=== PATIENT | female | born 1985 | race Caucasian/White ===

== ENCOUNTER 2018-05-30 20:51 | Emergency (ER) | payer OTHER ==
[~2018-05-30] VITALS: Ht 154.9 cm; Wt 136.2 kg
[~2018-05-30 20:51] MED LIST: AMLO10TA8 PO; CARV3.122 PO; VALS40TA10 PO
[2018-05-30 23:07] VITALS: BP 139/79
[2018-05-30 23:31] LABS: HCG UR SG 1.034 (1.003-1.030); MICROSCOPIC NOT IND
[2018-05-30 23:33] LABS: CULTURE INDICATED? NO
[2018-05-31 00:38] LABS: BASOPHILS # (AUTO) 0.04 x10^3/uL (0-0.1); BASOPHILS % (AUTO) 0 % (0-1); EOSINOPHILS # (AUTO) 0.18 x10^3/uL (0-0.4); EOSINOPHILS % (AUTO) 2 % (1-7); LYMPHOCYTES # (AUTO) 3.35 x10^3/uL (1-3.4); LYMPHOCYTES % (AUTO) 29 % (22-44); MD NO; MEAN CORPUSCULAR HEMOGLOBIN 29.4 pg (27.0-34.8); MEAN CORPUSCULAR HGB CONC 33.8 g/dL (32.4-35.8); MEAN PLATELET VOLUME 8.1 fL (7.4-10.4); MONOCYTES % (AUTO) 7 % (2-9); NEUTROPHILS # (AUTO) 7.26 x10^3/uL (1.8-6.8); NEUTROPHILS % (AUTO) 63 % (42-75); PLATELET COUNT 396 x10^3/uL (130-400); RED BLOOD COUNT 4.82 x10^6/uL (3.82-5.3); RED CELL DISTRIBUTION WIDTH 13.4 % (9.6-15.2)
[2018-05-31 00:51] LABS: ALBUMIN 3.5 g/dL (3.4-5.0); ANION GAP 5 mmol/L (5-15); CALCIUM 8.5 mg/dL (8.5-10.1); CHLORIDE 108 mmol/L (98-107)
[2018-05-31 00:58] LABS: ALANINE AMINOTRANSFERASE 30 U/L (12-78); ALKALINE PHOSPHATASE 63 U/L (45-117); BILIRUBIN,TOTAL 0.4 mg/dL (0.2-1.0); CREATININE 1.01 mg/dL (0.55-1.02); TOTAL PROTEIN 7.3 g/dL (6.4-8.2); TROPONIN I < 0.015 ng/mL (0.000-0.045)
== END 2018-05-31 02:34 | disposition home or self-care (01) ==
LOC: ED 05-31 02:20
DX: R07.89 Other chest pain (principal); I10 Essential (primary) hypertension
CPT/HCPCS: 36415; 71046; 80053; 81003; 81025; 84484; 84703; 85025; 93005; 99284

== ENCOUNTER 2019-04-29 19:07 | Emergency (ER) | payer OTHER ==
[~2019-04-29] VITALS: Ht 154.9 cm; Wt 128.8 kg
[2019-04-29 20:45] LABS: BASOPHILS # (AUTO) 0.05 x10^3/uL (0-0.1); BASOPHILS % (AUTO) 1 % (0-1); EOSINOPHILS # (AUTO) 0.18 x10^3/uL (0-0.4); EOSINOPHILS % (AUTO) 2 % (1-7); LYMPHOCYTES # (AUTO) 3.52 x10^3/uL (1-3.4); LYMPHOCYTES % (AUTO) 33 % (22-44); MD NO; MEAN CORPUSCULAR HEMOGLOBIN 28.4 pg (27.0-34.8); MEAN CORPUSCULAR HGB CONC 33.2 g/dL (32.4-35.8); MEAN CORPUSCULAR VOLUME 85.4 fL (80-100); MEAN PLATELET VOLUME 8.7 fL (7.4-10.4); MONOCYTES # (AUTO) 0.63 x10^3/uL (0.2-0.8); MONOCYTES % (AUTO) 6 % (2-9); NEUTROPHILS # (AUTO) 6.23 x10^3/uL (1.8-6.8); NEUTROPHILS % (AUTO) 59 % (42-75); PLATELET COUNT 436 x10^3/uL (130-400); RED BLOOD COUNT 4.86 x10^6/uL (3.82-5.3); RED CELL DISTRIBUTION WIDTH 14.3 % (9.6-15.2)
[2019-04-29 20:53] LABS: ALBUMIN 3.6 g/dL (3.4-5.0); ANION GAP 8 mmol/L (5-15); CALCIUM 9.7 mg/dL (8.5-10.1); CHLORIDE 100 mmol/L (98-107); CREATININE 1.03 mg/dL (0.55-1.02)
[2019-04-29 20:58] LABS: TROPONIN I < 0.015 ng/mL (0.000-0.045)
[2019-04-29] MEDS ORDERED: KETOROLAC 30 MG/1 ML IM ONE (22:30)
[2019-04-29] MEDS ORDERED: KETOROLAC 30 MG/1 ML ONE (22:58)
[2019-04-29] MEDS ORDERED: BUPR100T8 PO (23:10)
[2019-04-29 23:20] VITALS: BP 149/72
== END 2019-04-29 23:23 | disposition home or self-care (01) ==
LOC: ED 23:00
DX: R07.89 Other chest pain (principal); I10 Essential (primary) hypertension
CPT/HCPCS: 36415; 71046; 80048; 82040; 84484; 85025; 93005; 96372; 99285; J1885

== ENCOUNTER 2020-04-15 19:29 | Emergency (ER) | payer OTHER ==
[~2020-04-15] VITALS: Ht 154.9 cm; Wt 127.0 kg
[~2020-04-15 19:29] MED LIST changes: +AMLO-211 PO; -AMLO10TA8 PO; +BUPR100T8 PO
[2020-04-15 19:31] VITALS: BP 173/82
[2020-04-15] MEDS ORDERED: KETOROLAC 30 MG/1 ML ONE (20:27)
[2020-04-15] MEDS ORDERED: KETOROLAC 30 MG/1 ML IM ONE (20:30)
[2020-04-15] MEDS ORDERED: KETOROLAC 60 MG/2 ML ONE (20:34)
--- NOTE | 2020-04-15 20:59 | NUR ---
PAIN IMPROVED TO 2/10 REVIEWED DISCHARGE PLAN
== END 2020-04-15 21:01 | disposition home or self-care (01) ==
LOC: ED 20:30
DX: G44.219 Episodic tension-type headache, not intractable (principal); M54.2 Cervicalgia; M54.5 Low back pain; I10 Essential (primary) hypertension
CPT/HCPCS: 96372; 99283; J1885